=== PATIENT | female | born 1990 | race Two or more races ===

== ENCOUNTER 2017-01-01 05:53 | Day surgery (SDC) | payer SELFPAY ==
[2016-12-21 12:02] LABS: HEMATOCRIT 39.1 % (36.0-47.0); HGB HCT DIFFERENCE -0.1; MEAN CORPUSCULAR HEMOGLOBIN 27.7 pg (27.0-33.4); MEAN CORPUSCULAR HGB CONC 33.2 g/dL (32.0-36.0); MEAN CORPUSCULAR VOLUME 84 fl (80-97); RED BLOOD COUNT 4.67 10^6/uL (3.72-5.28); WHITE BLOOD COUNT 6.1 10^3/uL (4.0-10.5)
[2016-12-21 12:05] LABS: APPEARANCE,URINE CLEAR; BILIRUBIN,URINE NEGATIVE (NEGATIVE); GLUCOSE, URINE NEGATIVE (NEGATIVE); KETONES,URINE NEGATIVE (NEGATIVE); LEUKOCYTE ESTERASE,URINE NEGATIVE (NEGATIVE); NITRITE,URINE NEGATIVE (NEGATIVE); PROTEIN,URINE NEGATIVE (NEGATIVE); URINE SPECIFIC GRAVITY 1.017; UROBILINOGEN,URINE NEGATIVE mg/dL (<2.0)
[2016-12-21 12:13] LABS: COSMETIC PTT 30.4 SEC (23.5-35.8); PROTHROMBIN TIME 14.1 SEC (11.4-15.4)
[2016-12-21 12:19] LABS: COSMETIC HCG NEGATIVE (NEGATIVE)
[2016-12-21 12:21] LABS: ANION GAP 13 (5-19); BLOOD UREA NITROGEN 9 mg/dL (7-20); CALCIUM 9.2 mg/dL (8.4-10.2); CARBON DIOXIDE 24 mmol/L (22-30); CHLORIDE 104 mmol/L (98-107); CREATININE RESULT 0.64 mg/dL (0.52-1.25); GLUCOSE 75 mg/dL (75-110); SODIUM 141.2 mmol/L (137-145)
--- NOTE | 2016-12-21 12:46 | EKG REPORT ---
SEVERITY:- NORMAL ECG - SINUS RHYTHM : Confirmed by: Lida Dash MD 21-Dec-2016 12:45:41
[~2017-01-01 05:53] MED LIST: CEFAZOLIN SODIUM 1 GM in DEXTROSE 5%-WATER 50 ML IV SCH; DOXYCYCLINE HYCLATE 100 MG in DEXTROSE 5%-WATER 250 ML IV PRN; LACTATED RINGERS 1000 ML IV PRN; LIDOCAINE 0.5% INJ-PF (5 MG/ML) 50 ML SDV SUBCUT PRN
[2017-01-01] MEDS ORDERED: LIDOCAINE 0.5%/EPINEPHRINE INJ 50 ML VIAL ONE ×3 (06:50→14:09)
[2017-01-01] MEDS ORDERED: ACETAMINOPHEN 100 ML IV ONE ×2 (07:04→14:15)
[2017-01-01] MEDS ORDERED: MIDAZOLAM 2 MG/2 ML INJ ONE (07:04)
[2017-01-01] MEDS ORDERED: EPHEDRINE SULFATE INJ 50 MG/1 ML AMPULE ONE (07:04)
[2017-01-01] MEDS ORDERED: HYDROMORPHONE HCL INJ/PF 2 MG/ML AMPULE ONE (07:04)
[2017-01-01] MEDS ORDERED: PROPOFOL INJ 200 MG/20 ML VIAL IV ONE (07:04)
[2017-01-01] MEDS ORDERED: DEXAMETHASONE SOD PHOSPHATE INJ 4 MG/1 ML VIAL ONE (09:57)
[2017-01-01] MEDS ORDERED: PHENYLEPHRINE HCL INJ/PF 10 MG/1 ML SDV ONE (09:57)
[2017-01-01] MEDS ORDERED: SUCCINYLCHOLINE CHLORIDE INJ 200 MG/10 ML VIAL ONE (09:57)
[2017-01-01] MEDS ORDERED: ONDANSETRON HCL INJ/PF 4 MG/2 ML SDV ONE (09:57)
[2017-01-01] MEDS ORDERED: METOCLOPRAMIDE HCL INJ/PF 10 MG/2 ML SDV ONE (09:57)
[2017-01-01] MEDS ORDERED: LIDOCAINE 2% INJ-PF (20 MG/ML) 10 ML AMPUL ONE (09:57)
[2017-01-01] MEDS ORDERED: MEPERIDINE HCL/PF INJ 25 MG/1 ML DISP.SYRIN IV PRN (14:12)
[2017-01-01] MEDS ORDERED: FENTANYL CITRATE INJ/PF 100 MCG/2 ML AMPUL IV PRN ×3 (14:12)
[2017-01-01] MEDS ORDERED: PROMETHAZINE HCL INJ 25 MG/1 ML VIAL IV PRN ×2 (14:12)
[2017-01-01] MEDS ORDERED: DIPHENHYDRAMINE HCL 50 MG/ML VIAL IV PRN (14:12)
[2017-01-01] MEDS ORDERED: OXYCODONE-ACETAMINOPHEN 5-325 MG TABLET PO PRN ×5 (14:12→17:35)
[2017-01-01] MEDS ORDERED: MORPHINE SULFATE 10 MG/ML INJ IV PRN (14:12)
[2017-01-01] MEDS ORDERED: ONDANSETRON HCL INJ/PF 4 MG/2 ML SDV IV PRN (14:12)
[2017-01-01] MEDS ORDERED: MORPHINE SULFATE 10 MG/ML INJ IM PRN ×3 (17:35→17:40)
--- NOTE | 2017-01-01 17:38 | DISCHARGE SUMMARY E ---
Discharge Summary NAME: ONRBERT DYER : 1990 AGE: 26Y ADMITTED: 01/01/2017 DISCHARGED: DISCHARGE DIAGNOSIS: Excess skin of the abdomen. PROCEDURE: Full abdominoplasty. HOSPITAL COURSE: Patient was admitted to the hospital, had the above-named procedure, and was discharged home in stable condition. She was given full instructions. She was to always be moving her toes and ankles and pumping her calf muscles to minimize DVT. She is to get out of bed with assistance. She is always to be bent over until we give her clearance to stand up straight. Again, she is always to bent over. The patient was told this. Her was told this, and the staff at the hospital was told to keep her always bent. She is also going to work on deep breathing. If she has to cough, she was told to support her abdomen. She was instructed on how to monitor her Luis A drains that were placed. She was given instructions on what to look for when she checks the belly, and she is to follow up in the office on Saturday. If there are any concerns, she will contact us. She is to continue her antibiotics until we see her on Saturday and resume any other medicines that she has stopped and take her pain medication as needed. DICTATING PHYSICIAN: FABI MARTIN JR., M.D. [id number] VILLAY#: [id number] ID: [id number] JOB#: [id number] ACCT: [id number] cc:FABI MARTIN JR., M.D. >
[2017-01-01] MEDS ORDERED: PROMETHAZINE HCL INJ 25 MG/1 ML VIAL IM PRN ×2 (17:42→17:56)
[2017-01-01] MEDS ORDERED: MAG HYDROX/AL HYDROX/SIMETH SUSP 30 ML UDCUP PO PRN (17:57)
[2017-01-01] MEDS: DOXYCYCLINE HYCLATE 100 MG TABLET PO SCH (21:59)
[2017-01-01] MEDS: OXYCODONE-ACETAMINOPHEN 5-325 MG TABLET PO PRN (23:59)
[2017-01-02] MEDS ORDERED: RINGERS SOLUTION,LACTATED 1,000 ML IV PRN (03:49)
[2017-01-02] MEDS: OXYCODONE-ACETAMINOPHEN 5-325 MG TABLET PO PRN (08:28)
[2017-01-02] MEDS: DOXYCYCLINE HYCLATE 100 MG TABLET PO SCH (09:23)
[2017-01-02 09:46] VITALS: BP 105/69
--- NOTE | 2017-01-02 13:14 | OPERATIVE REPORT E ---
Operative Report NAME: NORBERT DYER : 1990 AGE: 26Y DATE OF SURGERY: 01/01/2017 ROOM: 226 PREOPERATIVE DIAGNOSIS: Excess skin and fat of the abdomen. POSTOPERATIVE DIAGNOSIS: Excess skin and fat of the abdomen. OPERATION: Full complete abdominoplasty. SURGEON: FABI MARTIN JR., M.D. ANESTHESIA: General endotracheal tube anesthesia. ESTIMATED BLOOD LOSS: Approximately 50 mL. COUNTS: Correct. INDICATIONS: Excess skin and fat of the abdomen. FINDINGS: Excess skin and fat of the abdomen. COMPLICATIONS: None. PROCEDURE AND FINDINGS IN DETAIL: The night before, the patient had the markings placed. These were then confirmed in the morning. Patient, before being brought into the operating room, had her MELE hose and compression boots working as well as a heating blanket to maintain a good core body temperature. After we completed, the tech, prior to being brought into the operating room, the markings had remained intact. The patient was then brought to the operating room, and she was then placed under general anesthesia. Patient had a Shipley catheter placed. She continued throughout the case with the compression boots. She had a Cheng Hugger throughout the case to keep her warm and maintain core body temperature. The forte were re-darkened. She was then prepped with a Betadine scrub and a Betadine solution and draped in a sterile and aseptic manner. After we completed the count lines, again once she was prepped, we then began the procedure. We anesthetized the incision with 0.50% lidocaine with epinephrine. After we did this, we then went ahead and made the incision along the suprapubic area and along the lower aspect of the abdomen. After making the incision, there was noted that there was a lot of scar tissue because of a previous . We then dissected down through the Camper's and Jayde's fascia until we encountered the anterior rectus fascia. We were very cautious on our dissection to leave as much as tissue on the rectus fascia in order to maintain lymphatics and to minimize the chance of a future seroma. Dissection was performed in a superior direction. Once the initial incision was made with a #10 blade, we maintained as much dermis as possible. We used the needle tip Bovie for the superficial dissection at 25 and then used the blade at 35 for the deeper dissection. The flap was then elevated, again using the Bovie, being very careful to leave as much as tissue and filmous tissue on the fascia in order to minimize the chances of seroma. In the areas where we were not dissecting, we also left fat on the fascia, a thin layer so that we would not disrupt the lymphatics especially at the lateral rectal area and laterally. Dissection continued in a superior direction. We went ahead and freed the scar that was attached on the flap from the underlying anterior rectus fascia. Once we dissected up the umbilicus, we then held the umbilicus at 180 degrees from each other with skin hooks and then incised the umbilicus and then held the skin hooks another 180 degrees from each other, 90 degrees from the original, and then continued with the incision so that we freed the umbilicus from the surrounding tissue. After we freed this enough into the subcutaneous tissue, we then went ahead and decided to go ahead and split the lower flap. This would facilitate the dissection of the umbilicus as well as the superior tunnel dissection up to the xiphoid. So we went ahead and anesthetized the midline of the flap that we had raised, and then we went ahead and cut this with the #10 blade and then used the Bovie for the rest of the dissection and split the flap. This now allowed us to dissect around the umbilicus with better visualization. Throughout the case, we had clamped large vessels and tied them with 3-0 Vicryl ties. Smaller vessels were coagulated. The periumbilical perforators were also clamped and tied with 3-0 Vicryl. Once we dissected 360 degrees around the umbilicus leaving some fat and tissue to maintain its vascularity, we then continued our superior dissection, creating a tunnel heading up towards the xiphoid. Step by step, we freed up the abdominal wall from the anterior rectus fascia, taking it up to just below the xiphoid. Once we completed this, we then went ahead and marked the midline with gentian beth. We then outlined approximately 2.5 cm from each side of the midline from the xiphoid down past the umbilicus down to the suprapubic area. We then went ahead and placed inverted [id number] sutures using 0 Nurolon to tighten up the anterior rectus fascia. After we placed the first stitch, we then placed a couple of 2-0 Vicryl sutures in order to make sure there was a nice smooth contour between the xiphoid and the 0 Nurolon sutures. This gave a nice good transition from the xiphoid down to the repair. These were inverted stitches that we placed of Vicryl. We continued step by step placing each of the inverted [id number]-pm-lsnme Nurolon going from inside to out inferiorly and then outside to in on one side, inside to out on the opposite side, and then went back inferiorly and went outside to inside. This gave us an inverted [id number]-ku-[id number], and this buried the suture knot from just above it as we placed the sutures. We took them all the way down to the umbilicus and then from umbilicus down to the pubic area. At the umbilicus, we placed 0 Vicryl sutures leaving enough space so that the umbilicus would not be strangulated. This was placed above and below the umbilicus. At the pubic area, in order to give the best contour after we completed all the fascial closure we inverted 2-0 Vicryl sutures to give us good contour inferiorly so that there was good, smooth transition from the fascial repair to the pubic area. After we completed this, pretty much all of the gentian beth was now at the midline. Therefore, at least 5 cm was imbricated along the fascial lines. After we completed this, we then went ahead and irrigated with a Betadine/saline solution. Prior to the Betadine/saline solution, we then tacked the umbilicus which we had dissected free, placing sutures at the 12 o'clock and 6 o'clock so we could try to create a vertical umbilicus, and then we also supported it with sutures at the 3 o'clock and the 9 o'clock. This tacked it down so there was only a small stalk so that when we sutured it to the abdominal wall this would give us a nice recessed kind of appearance and camouflage some of the suture line so that we would have a better overall scar. So after we had tacked the umbilicus into place, we then went ahead and irrigated, and then we went ahead and anesthetized the area and the pubic region for the drains. We made a small incision and placed each drain through the pubic area; 2 Luis A drains were used. These were sutured into place, first suturing the skin and then suturing the drains to the skin with 3 separate knots. After we did this, we then went ahead and wired the drain tube through a web of tissue that remained so that this would help hold into its appropriate place and bring it up into the area of the tunnel. We then placed a loose suture of 3-0 Vicryl to help anchor the drain in this position on both the left and the right sides. After we completed this, we then went ahead and placed a second towel under the legs. We then went ahead and put the patient up to about 25 degrees of flexion. We then went ahead and used the Parthanguay demarcator to demarcate the line for resection. It was noted that the line of resection followed the preoperative line which we had anticipated would be the maximum amount to be resected. In the midline, we resected approximately a centimeter and a half beyond the actual markings. After we completed this, we then placed the patient up to about 35 degrees, and then we began the closure. Please note that 2 hemiflaps after using the demarcator were resected as we did with the midline resection, we went ahead and did this for each of the hemiflaps, was anesthetized, cut with a #10 blade and maintained as much dermis as possible and then dissection with the Bovie at 35, removed the excess tissue. On the right side, we removed approximately 340 g and on the left side approximately 360 g which showed that they matched very closely to the amount that was removed, and the pattern taking one flap laying on the other were rather exact. Now the closure was begun, again putting her up at 35 degrees. We then went ahead confirmed that there was no bleeding prior to the closure, irrigated again, and then began stapling the wound together, milking the dog ear towards the central area. Unfortunately because the patient had a rather high umbilicus, we were not able to resect the previous old umbilical hole that we created and this would have to leave her with a vertical scar. So after we went ahead and stapled the abdomen together, we then went ahead and began the closure. We started at the lateral side and removed some of the candice. We placed sutures using 2-0 Vicryl on the lateral aspect, reapproximating the Jayde's fascia to Jayde's fascia. After we went back medially to about the anterior superior iliac spine region, we then went ahead and worked on the deeper tissue. This patient had a lot of fat left laterally, and the adventitial layer along the anterior rectus fascia was all left intact so we had a good area for lymphatic drainage; however, in order to help with the scar and to minimize the chances of seroma, we placed progressive tension sutures and quilting sutures in order to obliterate the space. We went ahead and using 2-0 Vicryl on pop-off needles grabbed the Jayde's fascia of the flap and sutured this to the anterior rectus fascia in an advancing type of fashion in order to advance the flap down to the pubic incision and minimize tension. After we placed several of these on the right side, we continued the rest of our closure. Each line was marked at approximately 5 cm on the skin. We used 2-0 Vicryl sutures in the usual standard fashion from surface to deep to surface so these sutures would be tied into the subcutaneous rather than causing irritation in the plane of the flap and anterior rectus sheath. These sutures were placed every 2.5 cm crossly from each other so that this would take tension off the closure using the superficial fascial closure. This will now give us a better scar because it will be a tension-free dermis and surface closure. We placed each of these sutures until we reached close to the midline. After we completed these, we then went ahead to the opposite side and did a similar procedure. We used the 2-0 Vicryl sutures to reapproximate Jayde's fascia laterally, and then once we got to about the anterior superior iliac spine, we then went ahead and closed the lateral edge of the wound with 3-0 Vicryl for the deep dermis. Again, this was the lateral aspect that was closed so that we made sure our alignment and contour was good. After we did this, we then removed the rest of the candice up to the midline. We then went ahead and under the flap placed progressive tension quilting sutures using 2-0 Vicryl, grabbing Jayde's fascia from the flap and tacking it to the rectus fascia in an advancing fashion. After this was tied, this brought the flap down to where it needed to be. We then closed Jayde's fascia. Again at least every 2.5 cm of Jayde's fascia, supporting suture was placed, and these were 3-point sutures of grabbing Jayde's fascia, grabbing the rectus fascia and Jayde's fascia so that we can tack the flap down and stabilize the flap and minimize spread of the final scar. After we placed these 3-point sutures, this brought us toward the midline. We then went ahead and finished the rest of the Vicryl sutures using 3-0 for the subcutaneous deep dermis, again continuing to milk the dog ear towards the midline. At the midline, we located the umbilicus. We marked this on the flap in its new position. We then went ahead and closed the midline area. Unfortunately, we had to leave a vertical scar because her flap would only advance to at least several centimeters below the umbilicus because it was such a high umbilicus. So we went ahead and closed the area with 2-0 Vicryl sutures to reapproximate the medial flaps down to the anterior rectus fascia. After we completed this, we then used 2-0 Vicryl to close the Jayde's fascia. 3-point sutures were placed in the pubic area to anchor the Jayde's fascia to the pubis. After we completed this, we then applied deep dermal sutures of 3-0 Vicryl, and then after this was completed, we had a good contour and shape. We then anesthetized the area along the midline where the umbilicus was to be delivered. We made an vertical incision along the midline in order to deliver the umbilicus. We then went ahead and resected fat from the surrounding area so that we could develop a recessed type of appearance of the umbilicus. Also, we dissected and found the umbilicus. We placed several Vicryl sutures to tack the umbilicus to the abdominal flap. We then sutured with 4-0 Prolene the umbilicus to the abdominal flap. She had a good contour and appearance upon completion. Please note that prior to the closure we had used the Bovie along the midline of the flap from about the anticipated umbilical level to the xiphoid and created a defect in the flap that would give her a hopefully better defined linea alba so would give her an indented vertical line on her abdomen which is a more cosmetic type of appearance for the patient. After we sutured the umbilicus, we then went ahead and closed the 2 limbs of the incision with 3-0 PDS with the knot being tied medially and ran laterally and then tied out with a knot laterally. Along the vertical, we used 3-0 PDS, placed the knot superiorly and ran it to the pubic area and placed this knot in the pubic knot. After this, we then went ahead and had good contour. Please note throughout the closure we irrigated with Betadine/saline solution and for the skin closure prior to the skin closure we washed the area with pure Betadine solution. At the end of the case, we had a great contour. She had a good appearance, and what we did was apply Dermabond to the drains and the incisions. The umbilicus had Bacitracin applied, Xeroform, and a fluff dressing in order to create the recessed appearance. We then went ahead and applied ABD pads, fluff dressings, a knee dressing, and abdominal binder. She was then reversed from anesthesia, taken to the [facility] for recovery. She tolerated all well. There was no complication. DICTATING PHYSICIAN: FABI MARTIN JR., M.D. [id number] HUMBERTO#: [id number] ID: [id number] JOB#: [id number] ACCT: [id number] cc:FABI MARTIN JR., M.D. > MTDD
== END 2017-01-02 12:25 | disposition home or self-care (01) ==
LOC: OROUT 05:53 → 2S 17:41 → OROUT 01-02 12:25
PROVIDERS: ATTEND Plastic Surgery
PROC: 0JB80ZZ Excision of Abdomen Subcutaneous Tissue and Fascia, Open Approach (ICD-10-PCS; principal; 2017-01-01 08:00)
DX: E65 Localized adiposity (principal); Z88.1 Allergy status to other antibiotic agents; Z87.892 Personal history of anaphylaxis; L98.7 Excessive and redundant skin and subcutaneous tissue
CPT/HCPCS: 93005; 36415; 81025; 85027; 85610; 85730; 81000; 80048; 84703; 88300 ×2; 93010; 17999; J2250; J1100; J3490 ×4; J2765; J2270; J1170; J2370; J2550; J0330; J2405; J7060; J2704; J0131; 802

== ENCOUNTER → 2018-09-08 | Outpatient (CLI) | payer SELFPAY ==
[2018-09-08 11:48] LABS: ABSOLUTE EOSINOPHILS # (AUTO) 0.1 10^3/uL (0.0-0.6); ABSOLUTE LYMPHOCYTES (AUTO) 1.6 10^3/uL (0.5-4.7); ABSOLUTE MONOCYTES (AUTO) 0.4 10^3/uL (0.1-1.4); BASOPHILS % (AUTO) 0.8 % (0-2); EOSINOPHILS % (AUTO) 1.5 % (0-6); HEMATOCRIT 37.5 % (36.0-47.0); HEMOGLOBIN 13.1 g/dL (12.0-15.5); LYMPHOCYTES % (AUTO) 31.9 % (13-45); MEAN CORPUSCULAR HEMOGLOBIN 29.8 pg (27.0-33.4); MEAN CORPUSCULAR VOLUME 85 fl (80-97); PLATELET COUNT 243 10^3/uL (150-450); RED BLOOD COUNT 4.41 10^6/uL (3.72-5.28); RED CELL DISTRIBUTION WIDTH 13.3 % (11.5-14.0); SEGMENTED NEUTROPHILS % (AUTO) 58.8 % (42-78); TOTAL CELLS COUNTED % (AUTO) 100 %
[2018-09-08 12:09] LABS: ALANINE AMINOTRANSFERASE 47 U/L (9-52); ALBUMIN 4.4 g/dL (3.5-5.0); ALKALINE PHOSPHATASE 40 U/L (38-126); ANION GAP 11 (5-19); ASPARTATE AMINO TRANSFERASE 28 U/L (14-36); BILIRUBIN,DIRECT 0.2 mg/dL (0.0-0.4); BILIRUBIN,TOTAL 0.9 mg/dL (0.2-1.3); BLOOD UREA NITROGEN 12 mg/dL (7-20); CALCIUM 9.3 mg/dL (8.4-10.2); CARBON DIOXIDE 22 mmol/L (22-30); CHLORIDE 106 mmol/L (98-107); GLUCOSE 81 mg/dL (75-110); POTASSIUM 4.2 mmol/L (3.6-5.0); SODIUM 138.8 mmol/L (137-145); TOTAL PROTEIN 7.2 g/dL (6.3-8.2)
== END ==
LOC: OD 10:42
PROVIDERS: ATTEND Family Medicine
DX: R25.2 Cramp and spasm (principal)
CPT/HCPCS: 36415; 80053; 82306; 84443; 85025